=== PATIENT | female | born 1950 | race Caucasian/White ===

== ENCOUNTER → 2016-12-11 | Day surgery (SDC) | payer MEDICARE ==
[~2016-12-11] MED LIST: APREPITANT 40 MG CAP ONE; BUPIVACAINE HCL PF 0.5% 10 ML VIAL ONE; CYMB60CA PO; ISOSULFAN BLUE 50 MG/5 ML VIAL SQ ONE; KETOROLAC TROMETHAMINE 30 MG/ML (IVP) VIAL ONE; LACTATED RINGER'S 1000 ML INJ 1,000 ML ONE; MIDAZOLAM HCL 2 MG/2 ML VIAL ONE; MORPHINE SULFATE 4 MG/ML INJ ONE; ONDANSETRON HCL 4 MG/2 ML VIAL IV PUSH ONE; PROPOFOL 200 MG/20 ML AMP IV ONE; SODIUM CHLORIDE 0.9% INJ 10 ML ONE; TIMO0.5S29 EACH EYE; XALA0.00 EACH EYE; ceFAZolin 2 GM PREMIX 50 ML ONE; oxyCODONE/ACETAMINOPHEN 5 MG/325 MG TAB ONE
--- NOTE | 2016-12-11 13:05 | TN ---
cc: STORMYLIZ DATE OF SURGERY: 12/11/2016 PREOPERATIVE DIAGNOSIS Right breast cancer. POSTOPERATIVE DIAGNOSIS Right breast cancer. SURGEON Liz Antoine PROCEDURE PERFORMED Right breast lumpectomy and right axillary sentinel lymph node biopsy with intraoperative ultrasound. ANESTHESIA General via LMA device. INDICATION The patient is a 66-year-old female who had a new palpable right breast cancer and has opted for breast conservation therapy. She now presents for the procedure. FINDINGS At the time of surgery four sentinel lymph nodes were identified. #1 had a count of 3299 and was 1+ blue. #2 had a count of 777 and was not blue. #3 had a count of 438 and was 1+ blue. #4 had a count of 32 and was 1+ blue. Touch-prep analysis was performed. Intraoperative ultrasound clearly demonstrated a less than 1 cm lesion just beneath the skin in the 10 o'clock location 3 cm from the nipple. PROCEDURE After informed consent was obtained and site verification was performed, the patient was brought to the radiology suite where she underwent peritumoral radionuclide injection. She was then brought to the major operating room where she was given a single dose of IV Ancef and sequential compression hose were placed. Ultrasound was performed to confirm the lesion location at 10 o'clock 3 cm from the nipple. She then underwent general anesthesia via an LMA device and half-strength Lymphazurin 3 cc was injected in the subareolar right breast with a five-minute massage. The right breast was then prepped and draped in sterile fashion to include the right arm. An incision was created at the inferior aspect of the right axillary hairline after anesthetizing with 0.5% Marcaine plain. Both sharp and electrocautery dissection were performed until the clavipectoral fascia was divided and the level I axilla was entered. Four mid level I sentinel lymph nodes were identified, although two were near the axillary tail of Johns. Each node was circumferentially dissected free from surrounding structures using the Harmonic scalpel. Touch-prep analysis confirmed the counts and the nodes were sent separately for permanent pathologic evaluation. Some adjacent axillary tissue was sent as a permanent specimen. Good hemostasis was noted and the background count was 40. The axillary vein, long thoracic, thoracodorsal and intercostal brachial neurovascular bundles were all identified and remained intact throughout the dissection. Good hemostasis was noted and the wound was closed using interrupted 3-0 Vicryl subcutaneous sutures and a 4-0 Monocryl subcuticular suture. Steri-Strips and a sterile dressing were applied. Attention was then turned to the right breast where the lesion had been identified with intraoperative ultrasound at the site of mild skin dimpling at 10 o'clock 3 cm from the nipple. The skin overlying the dimpled marked area was anesthetized with 0.5% Marcaine plain and a crescent-shaped incision to include this dimpled skin was created. Sharp dissection was performed circumferentially around the area and electrocautery was also used to delineate the margins. This specimen was oriented with the skin anterior, one short suture superiorly, and one long suture laterally. The lesion was palpable within the specimen and this was confirmed. Good hemostasis was obtained using electrocautery but inspection of the specimen did demonstrate that the lateral margin appeared close. This was sharply re-excised with a stitch on the new margin which was sent as a separate permanent specimen. The wound was then closed using interrupted 3-0 Vicryl subcutaneous sutures as well as a deeper layer to reapproximate the breast tissue. The skin was re-approximated with a 4-0 Monocryl subcuticular suture. Steri-Strips and sterile dressings were applied to both wounds. The patient tolerated the procedure well with an estimated blood loss of 50 cc. She was extubated in the operating room and brought to the recovery room in good condition. All sponge and needle counts were correct at the conclusion of the case. MD SAVITA Lozada/TIERRA /12:30 PM /12:58 PM
== END | disposition home or self-care (01) ==
LOC: ESDC 07:07
PROVIDERS: ATTEND Surgery
DX: C50.911 Malignant neoplasm of unspecified site of right female breast (principal)
CPT/HCPCS: 00400; 01610; 19301; 38525; 38792; 88307; J0690; J1885; J2250; J2270; J2405; J3010; J7120; J8501; Q9968

== ENCOUNTER → 2017-01-27 | Day surgery (SDC) | payer MEDICARE ==
--- NOTE | 2017-01-26 11:25 | MH ---
cc: WILFREDO BURROWS DATE OF ADMISSION 01/27/2017 [facility] #[id number] PRINCIPAL DIAGNOSIS Right breast cancer HISTORY OF PRESENT ILLNESS The patient is a 66-year-old female who is status post a right breast lumpectomy and sentinel lymph node biopsy on December 11, 2016 for infiltrating lobular carcinoma. She had one positive sentinel lymph node with a 7 mm metastatic lobular carcinoma deposit and no extranodal extension. Four other sentinel lymph nodes were negative. The tumor was 1.4 cm in size and she had stage II disease. The tumor was ER 90%, WA 61%, and HER2/delia negative. Dr. Pabon has recommended adjuvant chemotherapy because of her zeb involvement and she now presents for Wtkxxk-[id number]-Yrho placement to facilitate this. ALLERGIES She is allergic to MACRODANTIN, DAPSONE AND SULFA. CURRENT MEDICATIONS Include: 1. Clonazepam 0.5 mg 1/2 tablet three times a day p.r.n. 2. Dorzolamide 3. Timolol eye drops twice a day 4. Duloxetine 60 mg extended release daily PHYSICAL EXAMINATION She is alert and oriented x3 and in no acute distress. She is 5.3 and weighs 198 pounds with a BMI of 35. VITAL SIGNS: Blood pressure was 140/91, temperature 98, heart rate 94, respirations 18. HEENT: Exam was unremarkable. NECK: Supple. CHEST: Clear. CARDIAC: Exam was unremarkable. BREASTS: Exam revealed hypertrophy and asymmetry with the left breast being larger than the right. There was a healed lumpectomy scar in the upper outer 10 o'clock right breast and a healed right axillary scar. ABDOMEN: The was soft and nontender. IMPRESSION Ms. Martinez has stage II lobular carcinoma of the right breast and will be undergoing adjuvant chemotherapy. She understands the risks and benefits of port placement and has agreed to proceed. MD SAVITA Lozada/PERLA /11:00 AM /11:24 AM
[~2017-01-27] MED LIST changes: -BUPIVACAINE HCL PF 0.5% 10 ML VIAL ONE; +BUPIVACAINE/EPINEPHRINE 0.5% PF 10 ML VIAL ONE; +HEPARIN SODIUM - IV 10,000 UNITS/10 ML VIAL ONE; -ISOSULFAN BLUE 50 MG/5 ML VIAL SQ ONE; +LACTATED RINGER'S 1,000 ML BAG IV ONE; -MORPHINE SULFATE 4 MG/ML INJ ONE; -PROPOFOL 200 MG/20 ML AMP IV ONE; +PROPOFOL 500 MG/50 ML BTL IV ONE; -oxyCODONE/ACETAMINOPHEN 5 MG/325 MG TAB ONE
--- NOTE | 2017-01-27 11:12 | TN ---
cc: ILZ BURROWS DATE OF SURGERY 01/27/2017 PRINCIPAL DIAGNOSIS Right breast cancer PROCEDURE PERFORMED Left subclavian port placement. SURGEON Liz Burrows MD ANESTHESIA TIVA INDICATION The patient is a 66-year-old female with stage II invasive lobular carcinoma involving one lymph node. Dr. Pabon has recommended adjuvant chemotherapy and the patient now presents for port placement to facilitate treatment. FINDINGS AT THE TIME OF THE PROCEDURE Normal left subclavian anatomy was noted. PROCEDURE PERFORMED After informed consent was obtained and site verification was performed, the patient was brought to the major operating room where she underwent IV sedation. She was placed in the Trendelenburg position and bilateral chest and neck prep was then performed. She was given a single dose of IV Ancef and sequential compression hose were placed. The left subclavian area was anesthetized with 0.5% Marcaine plain. The left subclavian vein was identified via percutaneous cannulation and a J-wire was advanced easily via the Seldinger technique into the central circulation where its position was confirmed with fluoroscopy. Further analgesia was then infiltrated around the wire and both sharp and electrocautery dissection were performed until a subcutaneous pocket had been created for the reservoir. A peel-away sheath and introducer were then advanced over the wire and the catheter was measured out at 30 cm and advanced through the peel-away sheath after removal of the wire and introducer. Fluoroscopy demonstrated good position of the catheter tip at 19 cm and it was cut off at that point following removal of the peel-away sheath. The catheter was secured to the reservoir which was noted to flush and aspirate easily. The reservoir was placed in the subcutaneous pocket and secured to the chest wall with a single 2-0 Prolene suture. Good hemostasis was noted and the wound was closed using interrupted 3-0 Vicryl subcutaneous sutures and 4-0 Monocryl subcuticular suture. Steri-Strips and a sterile dressing were applied. The patient tolerated the procedure well with minimal blood loss and she was then brought to the recovery room in good condition. MD SAVITA Lozada/PERLA /11:00 AM /11:11 AM
== END | disposition home or self-care (01) ==
LOC: ESDC 08:02
PROVIDERS: ATTEND Surgery
DX: Z45.2 Encounter for adjustment and management of vascular access device (principal); C50.911 Malignant neoplasm of unspecified site of right female breast
CPT/HCPCS: 00532; 36561; 77001; C1788; J0690; J1642; J1885; J2250; J2405; J3010; J7120; J8501; J1644

== ENCOUNTER 2017-02-15 15:55 | Observation (INO) | payer MEDICARE ==
[~2017-02-15] VITALS: Ht 157.5 cm; Wt 90.0 kg
[~2017-02-15 15:55] MED LIST changes: -APREPITANT 40 MG CAP ONE; -BUPIVACAINE/EPINEPHRINE 0.5% PF 10 ML VIAL ONE; -HEPARIN SODIUM - IV 10,000 UNITS/10 ML VIAL ONE; -KETOROLAC TROMETHAMINE 30 MG/ML (IVP) VIAL ONE; -LACTATED RINGER'S 1,000 ML BAG IV ONE; -LACTATED RINGER'S 1000 ML INJ 1,000 ML ONE; -MIDAZOLAM HCL 2 MG/2 ML VIAL ONE; -ONDANSETRON HCL 4 MG/2 ML VIAL IV PUSH ONE; -PROPOFOL 500 MG/50 ML BTL IV ONE; -SODIUM CHLORIDE 0.9% INJ 10 ML ONE; -ceFAZolin 2 GM PREMIX 50 ML ONE
[2017-02-15 15:57] VITALS: BP 124/67; PULSE 126; RESP 20; TEMP 98.8; O2SAT 94
--- NOTE | 2017-02-15 16:12 | PD ---
Physical Exam Time Seen by Provider: 16:10 Narrative 66 y/o female sent by Dr Pabon for evaluation of fever, possible port infection , temperature 100.7 at home. Started chemotherapy 5 days ago for breast cancer treatment. Vital signs reviewed. Seen at triage desk. Awaiting bed placement. Data Data Last Documented VS Vital Signs Date Time Temp Pulse Resp B/P Pulse Ox O2 Delivery O2 Flow Rate FiO2 02/15/17 15:57 98.8 126 20 124/67 94 Room Air [facility] Medical Record Reviewed: Yes Supervised Visit with GURU: Kartik Barahona Feb 15, 2017 16:12
[2017-02-15] MEDS ORDERED: SODIUM CHLOR 0.9% 1000 ML INJ 1,000 ML IV ONE (17:00)
[2017-02-15] MEDS ORDERED: PROC10TA PO (17:12)
[2017-02-15] MEDS ORDERED: DORZ1SOL2 EACH EYE (17:12)
[2017-02-15] MEDS ORDERED: LATA0.002 EACH EYE (17:12)
[2017-02-15] MEDS ORDERED: ERGO1CAP30 PO (17:12)
[2017-02-15] MEDS ORDERED: CEPH-460 PO (17:12)
[2017-02-15] MEDS ORDERED: LORA-392 PO (17:12)
[2017-02-15] MEDS ORDERED: CYMB60CA PO (17:12)
[2017-02-15] MEDS ORDERED: ONDA1TAB17 PO (17:12)
--- NOTE | 2017-02-15 17:16 | PD ---
HPI Chief Complaint: Fever Time Seen by Provider: 17:00 Travel History International Travel<30 days: No Contact w/Intl Traveler<30days: No Traveled to known affect area: No History of Present Illness HPI This is a 66-year-old female with a history of bladder cancer that is in remission, newly diagnosed breast cancer, who is status post her first chemotherapy treatment last week, who presents today at the request of her oncologist, Dr. Pabon for fever and infected Bkblch-v-[id number]. The patient states the temperatures 100.7. She has been experiencing tachycardia. She denies any cough or productive phlegm. She does have redness and irritation around her Lspnqc-l-Trsd site. They've been using her I V for the chemotherapy. The patient was scheduled to see Dr. Liz Poon tomorrow to decide whether or not to remove the port. PFSH Past Medical History Anxiety: Yes Cancer: Yes (breast CA) Chemotherapy: Yes (11 Feb 2017 last treatment.) Glaucoma: Yes Tetanus Vaccination: Unknown Past Surgical History Genitourinary Surgery: Yes (bladder CA 1/2 removal) Other Surgery: Yes (R lumpectomy) Social History Alcohol Use: No Tobacco Use: No Substance Use: No Allergies-Medications (Allergen,Severity, Reaction): Coded Allergies: Macrodantin (Verified Allergy, Severe, 02/15/17) back pain Reported Meds & Prescriptions Reported Meds & Active Scripts Active Reported Keflex (Cephalexin) 500 Mg Capsule 500 Mg PO TID Cosopt Opth Drops (Dorzolamide-Timolol Opth Drops) 22.3-6.8 Mg/Ml Soln 1 Drop EACH EYE BID Latanoprost Opth Drops (Latanoprost) 0.005% Drops 1 Drop EACH EYE HS Refrigerate until opened. Ondansetron (Ondansetron HCl) 8 Mg Tab 8 Mg PO TID PRN Ativan (Lorazepam) 0.5 Mg Tab 0.5 Mg PO TID PRN Prochlorperazine Maleate 10 Mg Tab 10 Mg PO Q6H PRN Cymbalta DR (Duloxetine HCl) 60 Mg Capdr 60 Mg PO HS Ergocalciferol 50,000 Unit Cap 50,000 Units PO Q7D Review of Systems Except as stated in HPI: all other systems reviewed are Neg General / Constitutional: Positive: Fever, No: Chills HENT: No: Headaches, Lightheadedness, Neck Pain Cardiovascular: Positive: Palpitations, No: Chest Pain or Discomfort Respiratory: No: Cough, Shortness of Breath Gastrointestinal: No: Nausea, Vomiting, Abdominal Pain Genitourinary: No: Frequency, Dysuria Musculoskeletal: No: Weakness, Pain Neurologic: No: Weakness, Headache, Change in Mentation Physical Exam Narrative GENERAL: Well-nourished, well-developed patient. SKIN: Focused skin assessment warm/dry. HEAD: Normocephalic/atraumatic. EYES: No scleral icterus. No injection or drainage. NECK: Supple, trachea midline. CARDIOVASCULAR: Tachycardic with a heart rate in the 120s. No obvious murmur. RESPIRATORY: Breath sounds equal bilaterally. No accessory muscle use. GASTROINTESTINAL: Abdomen soft, non-tender, nondistended. MUSCULOSKELETAL: No cyanosis, or edema. NEUROLOGICAL: Awake and alert. Cranial nerves II through XII intact. Motor within normal limits. Five out of 5 muscle strength in all muscle groups. Normal speech. PSYCHIATRIC: No delusional thought processes. No hallucinations. Data Data Last Documented VS Vital Signs Date Time Temp Pulse Resp B/P Pulse Ox O2 Delivery O2 Flow Rate FiO2 02/15/17 16:21 116 18 95 Room Air 02/15/17 15:57 98.8 124/67 Orders Electrocardiogram (02/15/17 17:00) Complete Blood Count With Diff (02/15/17 17:00) Comprehensive Metabolic Panel (02/15/17 17:00) Lactic Acid Sepsis Protocol (02/15/17 17:00) Urinalysis - C+S If Indicated (02/15/17 17:00) Blood Culture (02/15/17 17:00) Chest, Single Ap (02/15/17 17:00) Blood Glucose (02/15/17 17:00) Ecg Monitoring (02/15/17:00) Iv Access Insert/Monitor (02/15/17:00) Oximetry (02/15/17 17:00) Oxygen Administration (02/15/17 17:00) Sodium Chlor 0.9% 1000 Ml Inj (Ns 1000 M (02/15/17 17:00) Urine Culture (02/15/17 17:20) Vancomycin Inj (Vancomycin Inj) (02/15/17 18:30) Ceftriaxone Inj (Rocephin Inj) (02/15/17 18:45) Admit Order (Ed Use Only) (02/15/17 18:40) Labs Laboratory Tests Test 02/15/17 17:20 White Blood Count 7.0 TH/MM3 Red Blood Count 4.72 MIL/MM3 Hemoglobin 13.3 GM/DL Hematocrit 40.7 % Mean Corpuscular Volume 86.1 FL Mean Corpuscular Hemoglobin 28.2 PG Mean Corpuscular Hemoglobin 32.7 % Concent Red Cell Distribution Width 13.7 % Platelet Count 154 TH/MM3 Mean Platelet Volume 11.6 FL Neutrophils (%) (Auto) 79.9 % Lymphocytes (%) (Auto) 15.0 % Monocytes (%) (Auto) 2.6 % Eosinophils (%) (Auto) 1.6 % Basophils (%) (Auto) 0.9 % Neutrophils # (Auto) 5.6 TH/MM3 Lymphocytes # (Auto) 1.0 TH/MM3 Monocytes # (Auto) 0.2 TH/MM3 Eosinophils # (Auto) 0.1 TH/MM3 Basophils # (Auto) 0.1 TH/MM3 CBC Comment AUTO DIFF Differential Comment AUTO DIFF CONFIRMED Urine Color YELLOW Urine Turbidity CLEAR Urine pH 5.5 Urine Specific [place] 1.019 Urine Protein TRACE mg/dL Urine Glucose (UA) NEG mg/dL Urine Ketones NEG mg/dL Urine Occult Blood NEG Urine Nitrite NEG Urine Bilirubin NEG Urine Urobilinogen 2.0 MG/DL Urine Leukocyte Esterase MOD Urine RBC 1 /hpf Urine WBC 19 /hpf Urine Squamous Epithelial 1 /hpf Cells Urine Transitional Epithelial 1 /hpf Cells Urine Mucus FEW /lpf Microscopic Urinalysis Comment CATH-CULTURE IND Sodium Level 137 MEQ/L Potassium Level 4.3 MEQ/L Chloride Level 102 MEQ/L Carbon Dioxide Level 26.1 MEQ/L Anion Gap 9 MEQ/L Blood Urea Nitrogen 13 MG/DL Creatinine 0.70 MG/DL Estimat Glomerular Filtration 83 ML/MIN Rate Random Glucose 111 MG/DL Lactic Acid Level 1.9 mmol/L Calcium Level 9.0 MG/DL Total Bilirubin 0.6 MG/DL Aspartate Amino Transf 20 U/L (AST/SGOT) Alanine Aminotransferase 28 U/L (ALT/SGPT) Alkaline Phosphatase 107 U/L Total Protein 7.0 GM/DL Albumin 3.3 GM/DL MDM Medical Decision Making Medical Screen Exam Complete: Yes Emergency Medical Condition: Yes Differential Diagnosis Sepsis versus dehydration versus pneumonia Narrative Course 66-year-old female history breast cancer, undergoing chemotherapy, who presents here at the request of her oncologist for evaluation of fever. The patient has a suspected infected Qtrmzl-[id number]. They report that she is scheduled to see Dr. Ana Poon tomorrow for possibility of removal of this Burcdv-l-Qifx. The patient's temperature is 100.7. White count is 7.0. Patient has a mild UTI. I do not believe the UTIs the cause of her fever. I Discussed the case with Dr. Henderson, covering for her oncologist, who agrees she should be admitted. We'll place her on vancomycin and Rocephin to cover both probable gram positives and a gram negatives. The case was discussed with Dr. Carlos Orozco covering for Dr. Pedro Denise for [facility]. Dr. Orozco will admit the patient for Dr. Denise this evening. Diagnosis Primary Impression: Fever Additional Impressions: infected [id number]-[id number] History of immunocompromised state UTI (urinary tract infection) Admitting Information Admitting Physician Requests: Admit Lewis Lizarraga MD Feb 15, 2017 17:16
[2017-02-15 17:34] LABS: AUTOMATED NEUTROPHIL # 5.6 TH/MM3 (1.8-7.7); BASOPHIL # 0.1 TH/MM3 (0-0.2); BASOPHIL % 0.9 % (0.0-2.0); EOSINOPHIL # 0.1 TH/MM3 (0-0.4); EOSINOPHIL % 1.6 % (0.0-4.0); HEMATOCRIT 40.7 % (35.0-46.0); MEAN CELL VOLUME 86.1 FL (80.0-100.0); MEAN CORPUSCULAR HEMOGLOBIN 28.2 PG (27.0-34.0); MEAN CORPUSCULAR HGB CONC 32.7 % (32.0-36.0); MONO % 2.6 % (0.0-8.0); NEUT % 79.9 % (16.0-70.0); PLATELET COUNT 154 TH/MM3 (150-450); RED BLOOD COUNT 4.72 MIL/MM3 (4.00-5.30); RED CELL DISTRIBUTION WIDTH 13.7 % (11.6-17.2)
[2017-02-15 17:35] LABS: BLOOD, URINE NEG (NEG); GLUCOSE,URINE NEG (NEG); KETONE, URINE NEG (NEG); MUCUS URINE FEW /lpf (OCC); NITRITE,URINE NEG (NEG); PH, URINE 5.5 (5.0-8.5); SQUAMOUS EPITHELIAL CELL URINE 1 /hpf (0-5); TRANSITIONAL EPI CELLS, URINE 1 /hpf; URINE COLOR YELLOW (YELLW/STRAW)
[2017-02-15 17:36] LABS: COMMENT (UR) CATH-CULTURE IND; CULTURE IF INDICATED CATH CULTURE IND
[2017-02-15 17:39] LABS: HEMO FLAGS AUTO DIFF
--- NOTE | 2017-02-15 17:41 | RADRPT ---
EXAM DATE/TIME: 02/15/2017 17:17 [place] COMPARISON: No previous studies available for comparison. INDICATIONS : Fever. MEDICAL HISTORY : Carcinoma, breast. SURGICAL HISTORY : Lumpectomy, right breast. Chemotherapy port. ENCOUNTER: Initial ACUITY: 1 day PAIN SCORE: 0/10 LOCATION: Bilateral chest FINDINGS: Minimal parenchymal changes are present in the left base. Thtoti-d-Wsyo is in good position.. The c ardiomediastinal contours are unremarkable. Osseous structures are intact. CONCLUSION: Minimal parenchymal changes left base Rosas Iqbal MD FACR on February 15, 2017 at 17:38 Board Certified Radiologist. This report was verified electronically.
[2017-02-15 17:52] LABS: ALT (GPT) 28 U/L (10-53); ANION GAP 9 MEQ/L (5-15); AST (GOT) 20 U/L (15-37); BICARBONATE 26.1 MEQ/L (21.0-32.0); BLOOD UREA NITROGEN 13 MG/DL (7-18); CHLORIDE 102 MEQ/L (98-107); GLOMERULAR FILTRATION RATE 83 ML/MIN (>89); POTASSIUM 4.3 MEQ/L (3.5-5.1); SODIUM (NA) 137 MEQ/L (136-145)
[2017-02-15 17:54] LABS: ALKALINE PHOSPHATASE 107 U/L (45-117); TOTAL BILIRUBIN ADULT 0.6 MG/DL (0.2-1.0)
[2017-02-15 18:06] LABS: SCAN/DIFF AUTO DIFF CONFIRMED
[2017-02-15] MEDS ORDERED: VANCOMYCIN INJ 1,000 MG in SODIUM CHLOR 0.9% 250 ML INJ 250 ML IV SCH (18:30)
[2017-02-15] MEDS ORDERED: cefTRIAXone INJ 1,000 MG in SODIUM CHLORIDE 0.9% INJ 100 ML IV ONE (18:45)
[2017-02-15 19:05] VITALS: BP 119/63; PULSE 115; PULSE 92; RESP 18
--- NOTE | 2017-02-15 19:12 | HHI.HP ---
HPI Service [facility] Hospitalists Primary Care Physician Shelton Huang MD Admission Diagnosis fever, infected infusa port, uti, Chief Complaint: Fever, undergoing chemotx for Br CA, sent by oncologist Travel History International Travel<30 Days: No Contact w/Intl Traveler <30 Da: No Traveled to Known Affected Are: No Sepsis Criteria SIRS Criteria (2 or more): Heart rate over 90 Sepsis Criteria (SIRS+source): Infect source susp/known History of Present Illness 66-year-old female with a history of bladder cancer that is in remission and newly diagnosed breast cancer, who is status post her first chemotherapy treatment last week, who presents today at the request of her oncologist, Dr. Pabon for fever and possible infected [id number]. The patient reports temp of 100.7. She has been experiencing tachycardia. She denies any cough or productive phlegm. She does have redness and irritation around her Infuse-a- Port site. They've been using her peripheral IV for the chemotherapy. The patient was scheduled to see Dr. Liz Poon tomorrow to decide whether or not to remove the port. She has been on Keflex as an outpatient for the last 4 days. Given her fevers and tachycardia it is thought best to bring her in for evaluation of sepsis and consult Dr. Poon as an inpatient Review of Systems Constitutional: COMPLAINS OF: Fatigue, Fever, Chills Eyes: DENIES: Blurred vision, Diplopia, Eye inflammation, Eye pain, Vision loss , Photosensitivity, Double Vision Respiratory: DENIES: Apneas, Cough, Snoring, Wheezing, Hemoptysis, Sputum production, Shortness of breath Cardiovascular: COMPLAINS OF: Palpitations, DENIES: Chest pain, Syncope, Dyspnea on Exertion, PND, Lower Extremity Edema, Orthopnea, Claudication Gastrointestinal: COMPLAINS OF: GERD, DENIES: Abdominal pain, Black stools, Bloody stools, BRB per rectum, Constipation, Diarrhea, Nausea, Reflux, Vomiting , Difficulty Swallowing, Anorexia, See HPI Musculoskeletal: COMPLAINS OF: Joint pain Hematologic/lymphatic: DENIES: Bruising, Lymphadenopathy Immunologic/allergic: DENIES: Eczema, Urticaria Neurologic: DENIES: Abnormal gait, Headache, Localized weakness, Paresthesias, Seizures, Speech Problems, Tremor, Poor Balance Psychiatric: COMPLAINS OF: Anxiety Past Family Social History Past Medical History Hx of bladder CA Breast CA Major depression Osteoporosis Vit D def Past Surgical History Partial bladder resection 2007 Laser surgery right eye T&A Vaginal hysterectomy 1994 L shoulder surgery Reported Medications Keflex (Cephalexin) 500 Mg Capsule 500 Mg PO TID Cosopt Opth Drops (Dorzolamide-Timolol Opth Drops) 22.3-6.8 Mg/Ml Soln 1 Drop EACH EYE BID Latanoprost Opth Drops (Latanoprost) 0.005% Drops 1 Drop EACH EYE HS Refrigerate until opened. Ondansetron (Ondansetron HCl) 8 Mg Tab 8 Mg PO TID PRN Ativan (Lorazepam) 0.5 Mg Tab 0.5 Mg PO TID PRN Prochlorperazine Maleate 10 Mg Tab 10 Mg PO Q6H PRN Cymbalta DR (Duloxetine HCl) 60 Mg Capdr 60 Mg PO HS Ergocalciferol 50,000 Unit Cap 50,000 Units PO Q7D Allergies: Coded Allergies: Macrodantin (Verified Allergy, Severe, 02/15/17) back pain Family History Father of [place] at 93 Mother of lung CA Social History Previously smoked 1ppd for 35 yrs, but quit approximately 12-13 years ago. No alcohol in 35 years; denies illicit drug use. 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 Physical Exam Vital Signs Vital Signs Date Time Temp Pulse Resp B/P Pulse Ox O2 Delivery O2 Flow Rate FiO2 02/15/17 19:05 115 18 119/63 Room Air 02/15/17 16:21 116 18 95 Room Air 02/15/17 15:57 98.8 126 20 124/67 94 Room Air Physical Exam GENERAL: This is a well-nourished, well-developed patient, in no apparent distress. Alert and oriented. Cooperative. SKIN: Left upper chest with erythema around subcutaneous port with overlying tenderness to palpation and apparent surface abrasion. No discharge. HEAD: Atraumatic. Normocephalic. No temporal or scalp tenderness. EYES: Pupils equal round and reactive. Extraocular motions intact. No scleral icterus. No injection or drainage. ENT: Nose without bleeding, purulent drainage or septal hematoma. Airway patent. NECK: Trachea midline. No JVD or lymphadenopathy. Supple, nontender, no meningeal signs. CARDIOVASCULAR: Regular rate and rhythm, slightly tachycardic without murmurs, gallops, or rubs. RESPIRATORY: Clear to auscultation. Breath sounds equal bilaterally. No wheezes , rales, or rhonchi. GASTROINTESTINAL: Abdomen soft, non-tender, nondistended. No hepato-splenomegaly , or palpable masses. No guarding. MUSCULOSKELETAL: Extremities without clubbing, cyanosis, or edema. No calf tenderness. Moves all extremities well. NEUROLOGICAL: Awake and alert. Cranial nerves II through XII intact. Motor and sensory grossly within normal limits. Five out of 5 muscle strength in all muscle groups. Normal speech. Laboratory Laboratory Tests Test 02/15/17 17:20 White Blood Count 7.0 Red Blood Count 4.72 Hemoglobin 13.3 Hematocrit 40.7 Mean Corpuscular Volume 86.1 Mean Corpuscular Hemoglobin 28.2 Mean Corpuscular Hemoglobin 32.7 Concent Red Cell Distribution Width 13.7 Platelet Count 154 Mean Platelet Volume 11.6 Neutrophils (%) (Auto) 79.9 Lymphocytes (%) (Auto) 15.0 Monocytes (%) (Auto) 2.6 Eosinophils (%) (Auto) 1.6 Basophils (%) (Auto) 0.9 Neutrophils # (Auto) 5.6 Lymphocytes # (Auto) 1.0 Monocytes # (Auto) 0.2 Eosinophils # (Auto) 0.1 Basophils # (Auto) 0.1 CBC Comment AUTO DIFF Differential Comment AUTO DIFF CONFIRMED Urine Color YELLOW Urine Turbidity CLEAR Urine pH 5.5 Urine Specific [place] 1.019 Urine Protein TRACE Urine Glucose (UA) NEG Urine Ketones NEG Urine Occult Blood NEG Urine Nitrite NEG Urine Bilirubin NEG Urine Urobilinogen 2.0 Urine Leukocyte Esterase MOD Urine RBC 1 Urine WBC 19 Urine Squamous Epithelial 1 Cells Urine Transitional Epithelial 1 Cells Urine Mucus FEW Microscopic Urinalysis Comment CATH-CULTURE IND Sodium Level 137 Potassium Level 4.3 Chloride Level 102 Carbon Dioxide Level 26.1 Anion Gap 9 Blood Urea Nitrogen 13 Creatinine 0.70 Estimat Glomerular Filtration 83 Rate Random Glucose 111 Lactic Acid Level 1.9 Calcium Level 9.0 Total Bilirubin 0.6 Aspartate Amino Transf 20 (AST/SGOT) Alanine Aminotransferase 28 (ALT/SGPT) Alkaline Phosphatase 107 Total Protein 7.0 Albumin 3.3 Date/Time Procedure Status Source Growth 02/15/17 17:25 Aerobic Blood Culture Received Blood Peripheral Pending 02/15/17 17:25 Anaerobic Blood Culture Received Blood Peripheral Pending 02/15/17 17:20 Urine Culture Received Urine Catheterized Urine Pending Result Diagram: 02/15/17 1720 02/15/17 1720 Imaging Last 72 hours Impressions Chest X-Ray 02/15/17 1700 Signed Impressions: Service Date/Time: Wednesday, February 15, 2017 17:17 - CONCLUSION: Minimal parenchymal changes left base Rosas Iqbal MD FACR Septic Shock Reassessment Heart: Regular rate and rhythm Lungs: Clear Skin: Warm Peripheral Pulses: Bounding Right Radial Bounding Left Radial Bounding Right Posterior Tibial Bounding Left Posterior Tibial Capillary Refill: Brisk Assessment and Plan Problem List: (1) Sepsis Status: Acute Plan: Subcutaneous port likely source given localized findings of tenderness and redness over the site. We'll have patient evaluated by general surgery tomorrow. Vital antibiotic therapy. (2) History of immunocompromised state Status: Acute Plan: She started chemotherapy last week. White blood cell count actually has improved somewhat. Follow clinically. (3) UTI (urinary tract infection) Status: Acute Plan: Rocephin should cover. Code Status Full Discussed Condition With Patient, her family and ER physician. Physician Certification 2 Midnight Certification Type: Admission for Inpatient Services Order for Inpatient Services The services are ordered in accordance with Medicare regulations or non- Medicare payer requirements, as applicable. In the case of services not specified as inpatient-only, they are appropriately provided as inpatient services in accordance with the 2-midnight benchmark. Estimated LOS (days): 2 days is the estimated time the patient will need to remain in the hospital, assuming treatment plan goals are met and no additional complications. Post-Hospital Plan: Not yet determined Carlos Orozco MD PhD Feb 15, 2017 19:12
[2017-02-15] MEDS ORDERED: ACETAMINOPHEN 500 MG CPLT PO PRN (19:30)
[2017-02-15 20:26] VITALS: BP 125/60; PULSE 118; RESP 18; TEMP 98.7; O2SAT 96
[2017-02-15 20:50] VITALS: BP 111/72; PULSE 116; RESP 17; TEMP 99.3; O2SAT 94
[2017-02-15] MEDS ORDERED: DULoxetine HCl DR 60 MG CAP PO SCH (21:00)
[2017-02-15] MEDS ORDERED: LATANOPROST 0.005% OPHT SOLN 2.5 ML BTL EACH EYE SCH (21:00)
[2017-02-15] MEDS ORDERED: PROCHLORPERAZINE MALEATE 10 MG TAB PO PRN (21:15)
[2017-02-15] MEDS: DORZOLAMIDE/TIMOLOL OPTH SOLN 10 ML BTL EACH EYE SCH (22:29)
[2017-02-16] VITALS: BP 107/75; PULSE 109; RESP 18; TEMP 99.8; O2SAT 99
[2017-02-16] MEDS: LORazepam 0.5 MG TAB PO PRN ×3 (03:04→18:05)
[2017-02-16 07:50] VITALS: BP 113/78; PULSE 100; RESP 20; TEMP 96.8; O2SAT 95
[2017-02-16] MEDS: DORZOLAMIDE/TIMOLOL OPTH SOLN 10 ML BTL EACH EYE SCH (08:35)
[2017-02-16] MEDS: ONDANSETRON HCL 4 MG/2 ML VIAL IV PUSH PRN ×2 (08:50→17:10)
--- NOTE | 2017-02-16 08:54 | HHI.PR ---
Subjective Subjective Notes Patient resting comfortably. No port site pain or drainage. Objective Vitals/I&O Vital Signs Date Time Temp Pulse Resp B/P Pulse Ox O2 Delivery O2 Flow Rate FiO2 02/16/17 00:00 99.8 109 18 107/75 99 02/15/17 20:26 Room Air Labs Laboratory Tests Test 02/15/17 17:20 White Blood Count 7.0 Red Blood Count 4.72 Hemoglobin 13.3 Hematocrit 40.7 Mean Corpuscular Volume 86.1 Mean Corpuscular Hemoglobin 28.2 Mean Corpuscular Hemoglobin 32.7 Concent Red Cell Distribution Width 13.7 Platelet Count 154 Mean Platelet Volume 11.6 Neutrophils (%) (Auto) 79.9 Lymphocytes (%) (Auto) 15.0 Monocytes (%) (Auto) 2.6 Eosinophils (%) (Auto) 1.6 Basophils (%) (Auto) 0.9 Neutrophils # (Auto) 5.6 Lymphocytes # (Auto) 1.0 Monocytes # (Auto) 0.2 Eosinophils # (Auto) 0.1 Basophils # (Auto) 0.1 CBC Comment AUTO DIFF Differential Comment AUTO DIFF CONFIRMED Urine Color YELLOW Urine Turbidity CLEAR Urine pH 5.5 Urine Specific [place] 1.019 Urine Protein TRACE Urine Glucose (UA) NEG Urine Ketones NEG Urine Occult Blood NEG Urine Nitrite NEG Urine Bilirubin NEG Urine Urobilinogen 2.0 Urine Leukocyte Esterase MOD Urine RBC 1 Urine WBC 19 Urine Squamous Epithelial 1 Cells Urine Transitional Epithelial 1 Cells Urine Mucus FEW Microscopic Urinalysis Comment CATH-CULTURE IND Sodium Level 137 Potassium Level 4.3 Chloride Level 102 Carbon Dioxide Level 26.1 Anion Gap 9 Blood Urea Nitrogen 13 Creatinine 0.70 Estimat Glomerular Filtration 83 Rate Random Glucose 111 Lactic Acid Level 1.9 Calcium Level 9.0 Total Bilirubin 0.6 Aspartate Amino Transf 20 (AST/SGOT) Alanine Aminotransferase 28 (ALT/SGPT) Alkaline Phosphatase 107 Total Protein 7.0 Albumin 3.3 Date/Time Procedure Status Source Growth 02/15/17 17:25 Aerobic Blood Culture Received Blood Peripheral Pending 02/15/17 17:25 Anaerobic Blood Culture Received Blood Peripheral Pending 02/15/17 17:20 Urine Culture Received Urine Catheterized Urine Pending Cardiovascular: Regular Lungs: Clear Abdomen: Non-distended, Non-tender, BS normal Wound Wound : Wound Location: Chest Appearance: Clean & Dry, Erythema (Minimal erythema. Small 6mm clean lateral eschar at port site.) A/P Assessment and Plan Port site clean, minimal erythema and no drainage. Recommend antibiotics. No need for port removal. Discharge after IV antibiotics today on keflex therapy. Followup in surgery clinic. Liz Antoine MD Feb 16, 2017 08:54
--- NOTE | 2017-02-16 09:22 | MB ---
cc: LIZ BURROWS DATE OF CONSULTATION 02/16/2017 PRINCIPAL DIAGNOSIS Right breast cancer with possible infected left subclavian [id number]-[id number]. ATTENDING PHYSICIAN Liz Burrows MD HISTORY OF PRESENT ILLNESS The patient is a 66-year-old female who had a right breast lumpectomy and sentinel lymph node biopsy for a palpable mass on December 11, 2016. Final pathology demonstrated stage II disease with a micrometastasis in one lymph node. She was seen by Dr. Pabon who recommended adjuvant chemotherapy and she subsequently underwent Ooxevq-O-Bepy placement on January 27. She developed some drainage at the port site late last week and was placed on oral Keflex Wednesday. On Wednesday, she had a temperature to 100.7 and was evaluated in the emergency room. She was noted to be tachycardiac and had some redness around the port site. There was also a question of a urinary tract infection and she was admitted last evening and placed on IV antibiotics. Surgical consultation is requested to evaluate the port site. MEDICAL HISTORY Significant for breast cancer as well as bladder cancer. She did receive her first course of adjuvant chemotherapy on February 11. The port was not used at that time and a peripheral IV was placed. PAST SURGERIES Included: 1. Removal of bladder cancer 2. Recent right breast lumpectomy and sentinel lymph node biopsy on December 11. 3. Port placement January 27. ALLERGIES She is allergic to MACRODANTIN. CURRENT MEDICATIONS Included: 1. Keflex 2. Latanoprost eye drops 3. Zofran p.r.n. 4. Ativan p.r.n. 5. Prochlorperazine p.r.n. 6. Cymbalta 7. Ergocalciferol PHYSICAL EXAMINATION She was alert and oriented x3 and in no acute distress. VITAL SIGNS: Temperature was 99.8 at midnight with a heart rate of 109, respirations 18, blood pressure 107/75, O2 saturation 99. She denies any pain. HEENT: Exam was unremarkable. NECK: The neck was supple with no adenopathy or thyromegaly. CHEST: Clear throughout. CARDIAC: Exam was significant for mild sinus tachycardia. EXTREMITIES: The port site had minimal erythema with a lateral eschar and no drainage or overt evidence of infection. The site was nontender. ABDOMEN: Soft and nontender throughout. BREASTS: The breast exam was significant for well-healed right periareolar lumpectomy and axillary scars. LABORATORY FINDINGS Included a white count of 7 with a hemoglobin of 13.3 and a hematocrit of 40.7. Platelet count was normal 150,000. She did have an abnormal differential with a neutrophil percentage of 80%, lymphocytes 15%. IMPRESSION Ms. Martinez had evidence of cellulitis surrounding the port site which has responded well to IV antibiotics. She has received Rocephin since admission and has no evidence of an overt port site infection at this time. I would recommend continued IV antibiotics and she can be discharged on an oral regimen. She will not require port removal at this time. Thank you for this consult. MD SAVITA Lozada/PERLA /8:50 AM /9:18 AM
--- NOTE | 2017-02-16 09:41 | HHI.PR ---
Subjective Remarks maybe mild urine frequency left port site was draining before but better now. Objective Vitals heart reg lung cta abd sn/t ext no edema left port site with eschar. no drainage and really no erythema. Vital Signs Date Time Temp Pulse Resp B/P Pulse Ox O2 Delivery O2 Flow Rate FiO2 02/16/17 00:00 99.8 109 18 107/75 99 02/15/17 20:50 99.3 116 17 111/72 94 02/15/17 20:26 98.7 118 18 125/60 96 Room Air 02/15/17 19:05 92 18 119/63 Room Air 02/15/17 16:21 116 18 95 Room Air 02/15/17 15:57 98.8 126 20 124/67 94 Room Air Result Diagram: 02/15/17 1720 02/15/17 1720 Imaging Last 72 hours Impressions Chest X-Ray 02/15/17 1700 Signed Impressions: Service Date/Time: Wednesday, February 15, 2017 17:17 - CONCLUSION: Minimal parenchymal changes left base Rosas Iqbal MD FACR A/P Problem List: (1) Infection due to port-a-cath Status: Acute Plan: Pt had left chest Port placed last month for chemo for breast ca she has hx of bladder ca Recieved chemo last week on and felt flulike sx's with fever over the weekend. There was concern for drainage and redness at port site and pt started on keflex before admission. She had low grade fevers and sent in per her Doctors for possible removal. Pt just seen by surgery and no port removal planned as it was felt improved blood cx and urine cx pending. iv abx started. will update her oncologist before d/c as apparently they were unable to use the port last week (2) Breast cancer Status: Acute Plan: see above Pedro Denise MD Feb 16, 2017 09:40
--- NOTE | 2017-02-16 09:56 | EKG ---
Date Performed: 02/15/2017 Time Performed: 17:17:47 PTAGE: 66 years EKG: SINUS TACHYCARDIA POSSIBLE RIGHT VENTRICULAR CONDUCTION DELAY MINIMAL ST DEPRESSION ABNORMA L RHYTHM ECG Compared to prior tracing no significant change PREVIOUS TRACING : 03/19/2004 09.51 DOCTOR: Urbano Ge Interpretating Date/Time 02/16/2017 09:51:12
[2017-02-16 11:50] VITALS: BP 134/79; PULSE 98; RESP 20; TEMP 97.6; O2SAT 94
[2017-02-16 15:50] VITALS: BP 129/68; PULSE 99; RESP 20; TEMP 97.2; O2SAT 95
[2017-02-16] MEDS ORDERED: cefTRIAXone INJ 1,000 MG in SODIUM CHLORIDE 0.9% INJ 100 ML IV SCH (18:00)
[2017-02-16] MEDS ORDERED: CEPH-460 PO (19:20)
--- NOTE | 2017-02-16 19:21 | HHI.DCPOC ---
Discharge Care Plan Diagnosis: (1) Infection due to port-a-cath Goals to Promote Your Health * To prevent worsening of your condition and complications * To maintain your health at the optimal level Directions to Meet Your Goals Take your medications as prescribed Follow your dietary instruction Follow activity as directed Keep your appointments as scheduled Take your immunizations and boosters as scheduled If your symptoms worsen call your PCP, if no PCP go to Urgent Care Center or Emergency Room Smoking is Dangerous to Your Health. Avoid second hand smoke Call the 24-hour hour crisis hotline for domestic abuse at Pedro Denise MD Feb 16, 2017 19:21
== END 2017-02-16 19:53 | disposition home or self-care (01) ==
LOC: NEPE 15:55 → NEDA 18:42 → INTOOBSV 18:42 → HOCB 20:47 → UNDODISIN 02-16 19:53 → UNDODISOB 02-16 19:53
PROVIDERS: ADMIT Hospitalist; ATTEND Hospitalist
DX: T80.219A Unspecified infection due to central venous catheter, initial encounter (principal); C50.911 Malignant neoplasm of unspecified site of right female breast; Z85.51 Personal history of malignant neoplasm of bladder; R00.0 Tachycardia, unspecified; F32.9 Major depressive disorder, single episode, unspecified; R94.31 Abnormal electrocardiogram [ECG] [EKG]; Z79.899 Other long term (current) drug therapy; A49.01 Methicillin susceptible Staphylococcus aureus infection, unspecified site; Y84.8 Other medical procedures as the cause of abnormal reaction of the patient, or of later complication, without mention of misadventure at the time of the procedure
CPT/HCPCS: 71010; 80053; 81001; 83605; 85025; 86403; 87040; 87077; 87086; 87186; 87205; 87641; 93005; 96360; 96361; 99285; G0378; J0696; J2405; J7030; Q0164